=== PATIENT | male | born 1995 | race Caucasian/White ===

== ENCOUNTER 2020-12-20 00:45 | Emergency (ER) | payer OTHER ==
[~2020-12-20] VITALS: Ht 177.8 cm; Wt 95.3 kg
[2020-12-20 00:45] VITALS: BP 138/79
--- NOTE | 2020-12-20 00:45 | NUR ---
SHAHLA CUNNINGHAM. TAKEN TO CHAIR C
--- NOTE | 2020-12-20 02:57 | NUR ---
PATIENT BIB [facility]. PATIENT EXAMINED BY DR. PAYTON. PATIENT MEDICALLY CLEARED AND RELEASED IN CUSTODY IN STABLE CONDITION. ORIGINAL PRE-BOOK FORM GIVEN TO OFFICER SUSU, #[id number].
== END 2020-12-20 02:57 ==
LOC: MED 00:45
DX: F10.129 Alcohol abuse with intoxication, unspecified (principal); Z02.89 Encounter for other administrative examinations; V43.92XA Unspecified car occupant injured in collision with other type car in traffic accident, initial encounter; Y93.89 Activity, other specified; Y92.89 Other specified places as the place of occurrence of the external cause; Y99.8 Other external cause status
CPT/HCPCS: 71045; 99283